=== PATIENT | female | born 1945 | race Caucasian/White ===

== ENCOUNTER 2018-05-30 12:00 | Observation (INO) ==
--- NOTE | 2018-05-30 12:38 | ED ---
HPI General Chief complaint: Nausea/Vomiting/Diarrhea Stated complaint: ABD PAIN Time Seen by Provider: 05/30/18 12:35 Source: patient and EMS Mode of arrival: EMS Limitations: physical limitation History of Present Illness HPI Narrative: 72-year-old female patient with previous history of hypertension , recently admitted for CHF 2 weeks ago, presents to the ER today for several days history of nausea, vomiting, diarrhea, and abdominal discomfort. She denies any recent fevers, states that she has had a little cough but otherwise denies any shortness of breath or other symptoms. Related Data Home Medications Medication Instructions Recorded Confirmed Lactobacillus acidoph-L.bulgar 1 packet PO TID 05/30/18 05/30/18 aspirin 81 mg PO DAILY 05/30/18 05/30/18 atorvastatin 40 mg PO DAILY 05/30/18 05/30/18 docusate sodium 100 mg PO BID 05/30/18 05/30/18 doxycycline monohydrate 100 mg PO Q12H 05/30/18 05/30/18 furosemide 20 mg PO BID 05/30/18 05/30/18 lisinopril 40 mg PO BID 05/30/18 05/30/18 lorazepam 0.5 mg PO DAILY PRN 05/30/18 05/30/18 methylprednisolone 4 mg PO DAILY 05/30/18 05/30/18 metoprolol succinate 50 mg PO DAILY 05/30/18 05/30/18 nitroglycerin 0.4 mg SUBLINGUAL Q5-15M PRN 05/30/18 05/30/18 ondansetron 4 mg PO BID PRN 05/30/18 05/30/18 oxycodone 5 mg PO Q6H PRN 05/30/18 05/30/18 pantoprazole 40 mg PO BID 05/30/18 05/30/18 potassium chloride 10 meq PO BID 05/30/18 05/30/18 sertraline 50 mg PO DAILY 05/30/18 05/30/18 Allergies Allergy/AdvReac Type Severity Reaction Status Date / Time Sulfa (Sulfonamide Allergy Intermediate ITCHING, Verified 05/30/18 12:18 Antibiotics) RASH Review of Systems Except as stated in HPI: all other systems reviewed are negative PMFSH History History Provided By: Patient Medical History Medical History H/O: hysterectomy (Acute) HTN (hypertension) (Acute) High cholesterol (Acute) Surgical History Surgical History History of cholecystectomy (Acute) Social History Social History Substance History: No History of Abuse Smoking Status: Never smoker How Often Do You Have a Drink Containing Alcohol: Never Recent Travel in [facility] within the Last 8 Weeks: No Recent Out of Country Travel within the Last 8 Weeks: No Exam Narrative Exam Narrative: GENERAL: Well-developed elderly white female patient currently in mild distress. Awake and oriented 3. SKIN: Focused skin assessment warm/dry. HEAD: Atraumatic. Normocephalic. EYES: Pupils equal and round. No scleral icterus. No injection or drainage. ENT: No nasal bleeding or discharge. Mucous membranes pink and moist. NECK: Trachea midline. No JVD. CARDIOVASCULAR: Regular rate and rhythm. No murmur appreciated. RESPIRATORY: No accessory muscle use. Decreased throughout bilaterally. Breath sounds equal bilaterally. GASTROINTESTINAL: Abdomen soft, non-tender, nondistended. Hepatic and splenic margins not palpable. MUSCULOSKELETAL: No obvious deformities. No clubbing. No cyanosis. No edema. NEUROLOGICAL: Awake and alert. No obvious cranial nerve deficits. Motor grossly within normal limits. Normal speech. PSYCHIATRIC: Appropriate mood and affect; insight and judgment normal. Course Hospital Course: Lab work shows significant leukocytosis. Her blood pressure is quite elevated in the ER, she is continuing to vomit in the ER and quite nauseous, she was given Zofran initially by EMS, given Reglan by me, and then Phenergan and is still having difficulty keeping medications down. Patient was ordered for clonidine in the ER but was too nauseous to take it. Her blood pressure continued to be quite elevated. She is symptomatic and apparently according to the daughter she has been having the cycle ongoing, is currently on doxycycline , has been labeled with sepsis, and they do not know the source at this point. At this point, my plan would be to admit her for further symptomatic relief as well as treatment of her blood pressure and nausea and vomiting. Case has been discussed with Dr. Gamez for admission. Initial Documented Vital Signs Temperature 98.3 F 07/27/18 12:18 Pulse Rate 68 05/30/18 12:18 Respiratory Rate 12 05/30/18 12:18 Blood Pressure 203/91 H 05/30/18 12:18 Pulse Oximetry 98 05/30/18 12:18 Last Documented Vital Signs Temperature 98.3 F 05/30/18 17:10 Pulse Rate 76 05/30/18 17:10 Respiratory Rate 19 05/30/18 17:10 Blood Pressure 207/88 H 05/30/18 17:10 Pulse Oximetry 97 05/30/18 17:10 Medical Decision Making Differential Diagnosis Differential Diagnosis: Gastroenteritis versus pancreatitis versus C. difficile diarrhea versus electrolyte abnormalities Lab Data Result diagrams: 05/30/18 12:35 05/30/18 12:35 Lab Results 05/30/18 05/30/18 05/30/18 Range/Units 12:35 12:35 12:35 WBC 17.7 H (4.0-11.0) th/mm3 RBC 4.96 (4.00-5.30) mil/mm3 Hgb 14.2 (11.6-15.3) gm/dL Hct 43.9 (35.0-46.0) % MCV 88.6 (80.0-100.0) fL MCH 28.7 (27.0-34.0) pg MCHC 32.4 (32.0-36.0) % RDW 14.9 (11.6-17.2) % Plt Count 387 (150-450) th/mm3 MPV 8.7 (7.0-11.0) fL Prelim Diff (Auto) Slide review pending Neut % (Auto) 81.0 H (16.0-70.0) % Lymph % (Auto) 9.8 (9.0-44.0) % [place] % (Auto) 7.3 (0.0-8.0) % Eos % (Auto) 1.2 (0.0-4.0) % Baso % (Auto) 0.7 (0.0-2.0) % Neut # (Auto) 14.3 H (1.8-7.7) th/mm3 Lymph # (Auto) 1.7 (1.0-4.8) th/mm3 [place] # (Auto) 1.3 H (0.0-0.9) th/mm3 Eos # (Auto) 0.2 (0.0-0.4) th/mm3 Baso # (Auto) 0.1 (0.0-0.2) th/mm3 WBC Differential . Diff Scan Auto diff confirmed Differential Comment . Platelet Estimate Normal (Normal) Platelet Morphology Normal (Normal) Ovalocytes 1+ H (None) Sodium 138 (136-145) meq/L Potassium 4.1 (3.5-5.1) meq/L Chloride 100 (98-107) meq/L Carbon Dioxide 30.2 (21.0-32.0) meq/L Anion Gap 8 (5-15) meq/L BUN 17 (7-18) mg/dL Creatinine 1.02 H (0.50-1.00) mg/dL Estimated GFR 54 L (>89) mL/min Random Glucose 98 (74-106) mg/dL Calcium 8.8 (8.5-10.1) mg/dL Total Bilirubin 1.0 (0.2-1.0) mg/dL AST 34 (15-37) U/L ALT 33 (10-53) U/L Alkaline Phosphatase 75 (45-117) U/L Troponin I 0.04 (0.02-0.05) ng/mL Total Protein 6.7 (6.4-8.2) g/dL Albumin 4.1 (3.4-5.0) g/dL Lipase 240 244 (73-393) U/L Urine Color (Yellw/Straw) Urine Clarity (Clear) Urine pH (5.0-8.5) Ur Specific [place] (1.002-1.035) Urine Protein (Neg-Trace) mg/dL Urine Glucose (UA) (Negative) mg/dL Urine Ketones (Negative) mg/dL Urine Occult Blood (Negative) Urine Nitrate (Negative) Urine Bilirubin (Negative) Urine Urobilinogen (Less than 2) mg/dL Ur Leukocyte Esterase (Negative) Urine RBC (0-3) /hpf Urine WBC (0-5) /hpf Micro UA Comment Urine Culture Comments 05/30/18 Range/Units Unknown WBC (4.0-11.0) th/mm3 RBC (4.00-5.30) mil/mm3 Hgb (11.6-15.3) gm/dL Hct (35.0-46.0) % MCV (80.0-100.0) fL MCH (27.0-34.0) pg MCHC (32.0-36.0) % RDW (11.6-17.2) % Plt Count (150-450) th/mm3 MPV (7.0-11.0) fL Prelim Diff (Auto) Neut % (Auto) (16.0-70.0) % Lymph % (Auto) (9.0-44.0) % [place] % (Auto) (0.0-8.0) % Eos % (Auto) (0.0-4.0) % Baso % (Auto) (0.0-2.0) % Neut # (Auto) (1.8-7.7) th/mm3 Lymph # (Auto) (1.0-4.8) th/mm3 [place] # (Auto) (0.0-0.9) th/mm3 Eos # (Auto) (0.0-0.4) th/mm3 Baso # (Auto) (0.0-0.2) th/mm3 WBC Differential Diff Scan Differential Comment Platelet Estimate (Normal) Platelet Morphology (Normal) Ovalocytes (None) Sodium (136-145) meq/L Potassium (3.5-5.1) meq/L Chloride (98-107) meq/L Carbon Dioxide (21.0-32.0) meq/L Anion Gap (5-15) meq/L BUN (7-18) mg/dL Creatinine (0.50-1.00) mg/dL Estimated GFR (>89) mL/min Random Glucose (74-106) mg/dL Calcium (8.5-10.1) mg/dL Total Bilirubin (0.2-1.0) mg/dL AST (15-37) U/L ALT (10-53) U/L Alkaline Phosphatase (45-117) U/L Troponin I (0.02-0.05) ng/mL Total Protein (6.4-8.2) g/dL Albumin (3.4-5.0) g/dL Lipase (73-393) U/L Urine Color Yellow (Yellw/Straw) Urine Clarity Clear (Clear) Urine pH 6.0 (5.0-8.5) Ur Specific [place] 1.043 H (1.002-1.035) Urine Protein Negative (Neg-Trace) mg/dL Urine Glucose (UA) Negative (Negative) mg/dL Urine Ketones Negative (Negative) mg/dL Urine Occult Blood Negative (Negative) Urine Nitrate Negative (Negative) Urine Bilirubin Negative (Negative) Urine Urobilinogen Less than 2 (Less than 2) mg/dL Ur Leukocyte Esterase Negative (Negative) Urine RBC 1 (0-3) /hpf Urine WBC 1 (0-5) /hpf Micro UA Comment Culture not ind Urine Culture Comments Culture not ind Imaging Data Radiologist's impression: Chest X-Ray 05/30/18 12:37 CONCLUSION: No acute cardiopulmonary disease. Abdomen/Pelvis CT 05/30/18 13:46 CONCLUSION: 1. Status post cholecystectomy. There is a small amount air in the central biliary system which can be a normal postsurgical change. 2. Unremarkable bowel gas pattern with no obstruction or inflammatory change. Discharge Plan Discharge Disposition Patient Disposition: 30 Still Patient Discharge Condition Condition: Stable Discharge Details Anticipated Discharge Date: 05/30/18 Diagnosis: Vomiting and diarrhea, Hypertension, Leukocytosis Physicians Team ED Provider: Julian Benjamin Primary Care Provider: Geovani Cazares Rxs /Orders / Referrals /Forms Prescriptions: No Action aspirin 81 mg Tablet,Delayed Release (Dr/Ec) 81 mg PO DAILY RF: 0 doxycycline monohydrate 100 mg Capsule 100 mg PO Q12H RF: 0 docusate sodium 100 mg Capsule 100 mg PO BID RF: 0 furosemide 20 mg Tablet 20 mg PO BID RF: 0 Lactobacillus acidoph-L.bulgar 100 million cell Granules In Packet 1 packet PO TID RF: 0 atorvastatin 40 mg Tablet 40 mg PO DAILY RF: 0 potassium chloride 10 mEq Capsule, Extended Release 10 meq PO BID RF: 0 metoprolol succinate 50 mg Tablet Extended Release 24 Hr 50 mg PO DAILY RF: 0 lorazepam 0.5 mg Tablet 0.5 mg PO DAILY PRN (Reason: Nausea) RF: 0 pantoprazole 40 mg Tablet,Delayed Release (Dr/Ec) 40 mg PO BID RF: 0 nitroglycerin 0.4 mg Tablet, Sublingual 0.4 mg SUBLINGUAL Q5-15M PRN (Reason: Chest Pain) RF: 0 methylprednisolone 4 mg Tablets,Dose Pack 4 mg PO DAILY RF: 0 lisinopril 40 mg Tablet 40 mg PO BID RF: 0 ondansetron 4 mg Tablet,Disintegrating 4 mg PO BID PRN (Reason: Nausea) RF: 0 sertraline 50 mg Tablet 50 mg PO DAILY RF: 0 oxycodone 5 mg Tablet 5 mg PO Q6H PRN (Reason: Pain) RF: 0 Discharge Interventions Interventions: Vital Signs Last Done: 05/30/18 17:10 Status ED Status: With Nurse
[2018-05-30 13:08] LABS: Baso # (Auto) 0.1 th/mm3 (0.0-0.2); Baso % (Auto) 0.7 % (0.0-2.0); Eos # (Auto) 0.2 th/mm3 (0.0-0.4); Eos % (Auto) 1.2 % (0.0-4.0); Hematocrit 43.9 % (35.0-46.0); Hemoglobin 14.2 gm/dL (11.6-15.3); Lymph # (Auto) 1.7 th/mm3 (1.0-4.8); Lymph % (Auto) 9.8 % (9.0-44.0); Mean Corpuscular HGB Conc 32.4 % (32.0-36.0); Mean Corpuscular Hemoglobin 28.7 pg (27.0-34.0); Mean Corpuscular Volume 88.6 fL (80.0-100.0); Mean Platelet Volume 8.7 fL (7.0-11.0); Mono # (Auto) 1.3 th/mm3 (0.0-0.9); Mono % (Auto) 7.3 % (0.0-8.0); Neut # (Auto) 14.3 th/mm3 (1.8-7.7); Platelet Count 387 th/mm3 (150-450); Red Blood Count 4.96 mil/mm3 (4.00-5.30); Red Cell Distribution Width 14.9 % (11.6-17.2); White Blood Count 17.7 th/mm3 (4.0-11.0)
--- NOTE | 2018-05-30 13:21 | XR ---
EXAM DATE: 05/30/2018 1:16 PM EDT AGE/SEX: 72 years / Female INDICATIONS: Shortness of breath, nausea, vomiting. CLINICAL DATA: This is the patient's initial encounter. Patient reports that signs and symptoms have been present for > 1 year and indicates a pain score of 1/10. MEDICAL/SURGICAL HISTORY: Hypertension. Congestive heart failure. Hysterectomy. COMPARISON: [facility], XR CHEST PA AND LAT, 11/14/2017. . FINDINGS: A single AP view of the chest demonstrates the lungs to be symmetrically aerated without evidence of mass, infiltrate or effusion. The cardiomediastinal contours are unremarkable. Osseous structures a re intact. CONCLUSION: No acute cardiopulmonary disease. Electronically signed by: Obed Prather MD 05/30/2018 1:20 PM EDT
[2018-05-30 13:38] LABS: Ovalocytes 1+; Platelet Estimate Normal (Normal); Platelet Morphology Normal (Normal)
[2018-05-30 13:40] LABS: Alanine Aminotransferase 33 U/L (10-53); Albumin 4.1 g/dL (3.4-5.0); Alkaline Phosphatase 75 U/L (45-117); Anion Gap 8 meq/L (5-15); Aspartate Aminotransferase 34 U/L (15-37); Blood Urea Nitrogen 17 mg/dL (7-18); Calcium 8.8 mg/dL (8.5-10.1); Carbon Dioxide 30.2 meq/L (21.0-32.0); Chloride 100 meq/L (98-107); Glomerular Filtration Rate 54 mL/min (>89); Glucose,Random 98 mg/dL (74-106); Lipase 240 U/L (73-393); Potassium 4.1 meq/L (3.5-5.1); Sodium 138 meq/L (136-145); Total Protein 6.7 g/dL (6.4-8.2)
--- NOTE | 2018-05-30 14:41 | CT ---
EXAM DATE: 05/30/2018 2:27 PM EDT AGE/SEX: 72 years / Female INDICATIONS: Upper abdominal pain. Nausea. Vomiting. CLINICAL DATA: This is the patient's initial encounter. Patient reports that signs and symptoms have been present for 1 day and indicates a pain score of 5/10. MEDICAL/SURGICAL HISTORY: Hypertension. Hysterectomy. Cholecystectomy. ORAL CONTRAST: No oral contrast ingested. RADIATION DOSE: 10.75 CTDI (mGy) COMPARISON: [facility], CT ABDOMEN AND PELVIS W AND W/O CONTRAST, 10/11/2017. . TECHNIQUE: Multiple contiguous axial images were obtained through the abdomen and pelvis following b olus infusion of 91 ml Omnipaque 350 (iohexol) nonionic water-soluble contrast as a single exam dos e. No oral contrast ingested. Using automated exposure control and adjustment of the mA and/or kV ac cording to patient size, radiation dose was kept as low as reasonably achievable to obtain optimal di agnostic quality images. DICOM format image data is available electronically for review and comparis on. FINDINGS: Lower Lungs: The visualized lower lungs are clear. Liver: The liver has a homogeneous density without space-occupying lesion. There is no dilation of th e biliary tree. As a small amount of air in the central biliary system. The patient is status post ch olecystectomy with surgical clips in the region of the joshua hepatis. Spleen: Homogeneous density without enlargement. Pancreas: Unremarkable without mass or calcification. Kidneys: Normal in size and shape. No evidence of mass or hydronephrosis. Adrenal Glands: Unremarkable. Aorta: The aorta and proximal iliac vessels are grossly unremarkable without aneurysmal dilation. Bowel/Mesentery: No oral contrast was given. The bowel loops are grossly unremarkable. The cecum and sigmoid colon have a normal configuration. Abdominal Wall: Intact. Retroperitoneum: No evidence of adenopathy in the retrocrural, para-aortic, or deep pelvic regions. Bladder: Contours are smooth. Reproductive Organs: No abnormal masses or calcifications seen. Inguinal: The inguinal region is unremarkable without evidence of adenopathy. Bony Structures: There is diffuse osteopenia and mild degenerative change. The patient is again note d to be status post bilateral hip arthroplasty. A pain pump is again noted with intrathecal catheter. CONCLUSION: 1. Status post cholecystectomy. There is a small amount air in the central biliary system which can be a normal postsurgical change. 2. Unremarkable bowel gas pattern with no obstruction or inflammatory change. Electronically signed by: Obed Prather MD 05/30/2018 2:39 PM EDT
[2018-05-30 16:01] LABS: Troponin I 0.04 ng/mL (0.02-0.05)
[2018-05-30] MEDS ORDERED: Acetaminophen 325 MG Tablet PO ONE (16:53)
[2018-05-30 17:10] LABS: Bilirubin,Urine Negative (Negative); Clarity,Urine Clear (Clear); Color,Urine Yellow (Yellw/Straw); Glucose,Urine (UA) Negative (Negative); Leukocyte Esterase,Urine Negative (Negative); Nitrite,Urine Negative (Negative); Specific Gravity,Urine 1.043 (1.002-1.035)
[2018-05-30] MEDS ORDERED: Bisacodyl 10 MG Supp RECTAL PRN (17:53)
[2018-05-30] MEDS: Furosemide 20 MG Tablet PO SCH (22:05)
[2018-05-30] MEDS: Docusate Sodium 100 MG Capsule PO SCH (22:05)
[2018-05-30] MEDS: Lisinopril 20 MG Tablet PO SCH (22:05)
--- NOTE | 2018-05-30 23:28 | P.HPIM ---
History of Present Illness Service: [facility] Primary Care Physician: Geovani Cazares Chief Complaint: Abdominal pain, nausea, and vomiting History of Present Illness: Ms. Valdivia is a 72-year-old female with a history hyperlipidemia, hypertension, and possibly congestive heart failure who was admitted on 05/30/2018 for poorly controlled hypertension and abdominal pain with intractable nausea, and vomiting. The patient is seen in the CDU. She states that she was treated at [facility] in [place] about a week ago for a "blood infection". At the time of my visit, she reports feeling much better and denies any abdominal pain , nausea, vomiting, or diarrhea. Review of Systems All other systems reviewed negative except as stated in HPI [facility] - History History Provided By: Patient - Medical History Medical History: Medical History (Last Reviewed 05/30/18 @ 12:44 by Julian Benjamin MD) H/O: hysterectomy HTN (hypertension) High cholesterol - Surgical History Surgical History: Surgical History (Last Reviewed 05/30/18 @ 12:44 by Julian Benjamin MD) History of cholecystectomy - Tobacco History Smoking Status: Never smoker - Alcohol History How Often Do You Have a Drink Containing Alcohol: Never - Substance Use History Substance History: No History of Abuse - Travel History Recent Travel in the [place] Within the Last 8 Weeks: No Recent Travel Out of the Country Within the Last 8 Weeks: No - Immunization History Tetanus Immunization: >5 Years Hx Influenza Vaccine This Season: No Medications and Allergies Active Medications: Active Medications Al Hydroxide/Mg Hydroxide (Milk Of Hannah Fontanaq) 30 ml PO Q12H PRN PRN Reason: Mild Constipation Aspirin (Ecotrin) 81 mg PO DAILY [facility] Atorvastatin Calcium (Lipitor) 40 mg PO DAILY [facility] Bisacodyl (Dulcolax Supp) 10 mg RECTAL DAILY PRN PRN Reason: SEVERE CONSITIPATION Clonidine HCl (Catapres) 0.1 mg PO Q6H PRN PRN Reason: SBP>180, DBP>110 Docusate Sodium (Colace) 100 mg PO BID [facility] Last Admin: 05/30/18 22:05 Dose: 100 mg Enalaprilat (Vasotec Inj) 1.25 mg IV.PUSH Q6H PRN PRN Reason: SBP>180, DBP>110 Furosemide (Lasix) 20 mg PO BID [facility] Last Admin: 05/30/18 22:05 Dose: 20 mg Lactulose (Lactulose Liq) 30 ml PO DAILY PRN PRN Reason: SEVERE CONSITIPATION Lisinopril (Prinivil) 40 mg PO BID [facility] Last Admin: 05/30/18 22:05 Dose: 40 mg Metoprolol Succinate (Toprol Xl) 50 mg PO DAILY [facility] Sennosides (Senokot) 17.2 mg PO Q12H PRN PRN Reason: Moderate Constipation Sertraline HCl (Zoloft) 50 mg PO DAILY [facility] Sodium Chloride (Ns Flush) 2 ml IV.FLUSH PRN PRN PRN Reason: FLUSH AFTER USING IV ACCESS Allergies Allergy/AdvReac Type Severity Reaction Status Date / Time Sulfa (Sulfonamide Allergy Intermediate ITCHING, Verified 05/30/18 12:18 Antibiotics) RASH Home Medications Medication Instructions Recorded Confirmed Type Lactobacillus acidoph-L.bulgar 1 packet PO TID 05/30/18 05/30/18 History aspirin 81 mg PO DAILY 05/30/18 05/30/18 History atorvastatin 40 mg PO DAILY 05/30/18 05/30/18 History docusate sodium 100 mg PO BID 05/30/18 05/30/18 History doxycycline monohydrate 100 mg PO Q12H 05/30/18 05/30/18 History furosemide 20 mg PO BID 05/30/18 05/30/18 History lisinopril 40 mg PO BID 05/30/18 05/30/18 History lorazepam 0.5 mg PO DAILY PRN 05/30/18 05/30/18 History methylprednisolone 4 mg PO DAILY 05/30/18 05/30/18 History metoprolol succinate 50 mg PO DAILY 05/30/18 05/30/18 History nitroglycerin 0.4 mg SUBLINGUAL Q5-15M PRN 05/30/18 05/30/18 History ondansetron 4 mg PO BID PRN 05/30/18 05/30/18 History oxycodone 5 mg PO Q6H PRN 05/30/18 05/30/18 History pantoprazole 40 mg PO BID 05/30/18 05/30/18 History potassium chloride 10 meq PO BID 05/30/18 05/30/18 History sertraline 50 mg PO DAILY 05/30/18 05/30/18 History Exam Vital signs: Vital Signs 05/30/18 12:18 05/30/18 12:49 05/30/18 15:46 Temperature 98.3 F Pulse Rate 68 78 Respiratory Rate 12 19 Blood Pressure 203/91 H 184/83 H Pulse Oximetry 98 97 99 05/30/18 17:10 05/30/18 18:04 05/30/18 18:09 Temperature 98.3 F Pulse Rate 76 85 Respiratory Rate 19 19 16 Blood Pressure 207/88 H 141/69 H Pulse Oximetry 97 95 05/30/18 20:00 Temperature 99.0 F Pulse Rate 87 Respiratory Rate 18 Blood Pressure 97/59 L Pulse Oximetry 94 L Intake & Output 05/30/18 05/30/18 05/31/18 06:59 18:59 06:59 Weight 78.018 kg - Constitutional no acute distress, average body habitus - Routine Respiratory Exam Present: CTA bilaterally. Absent: accessory muscle use, wheezes, crackles - Routine Cardiovascular Exam Present: RRR, S1, S2. Absent: murmur, gallop, rubs - Routine Abdominal Exam Present: soft, normoactive bowel sounds. Absent: tenderness, distended - Routine Extremities Exam Present: pulses intact. 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) Results - Labs CBC & Chem 7: 05/30/18 12:35 05/30/18 12:35 Labs: Short CBC 05/30/18 Range/Units 12:35 WBC 17.7 H (4.0-11.0) th/mm3 Hgb 14.2 (11.6-15.3) gm/dL Hct 43.9 (35.0-46.0) % Plt Count 387 (150-450) th/mm3 BMP 05/30/18 12:35 Sodium 138 Potassium 4.1 Chloride 100 Carbon Dioxide 30.2 BUN 17 Creatinine 1.02 H Calcium 8.8 Cardiac Enzymes 05/30/18 Range/Units 12:35 Troponin I 0.04 (0.02-0.05) ng/mL Liver Function 05/30/18 Range/Units 12:35 Total Bilirubin 1.0 (0.2-1.0) mg/dL AST 34 (15-37) U/L ALT 33 (10-53) U/L Alkaline Phosphatase 75 (45-117) U/L Albumin 4.1 (3.4-5.0) g/dL Urine 05/30/18 Range/Units Unknown Urine Color Yellow (Yellw/Straw) Urine Clarity Clear (Clear) Urine pH 6.0 (5.0-8.5) Ur Specific [place] 1.043 H (1.002-1.035) Urine Protein Negative (Neg-Trace) mg/dL Urine Glucose (UA) Negative (Negative) mg/dL - Imaging Impressions Chest X-Ray 05/30/18 12:37 CONCLUSION: No acute cardiopulmonary disease. Abdomen/Pelvis CT 05/30/18 13:46 CONCLUSION: 1. Status post cholecystectomy. There is a small amount air in the central biliary system which can be a normal postsurgical change. 2. Unremarkable bowel gas pattern with no obstruction or inflammatory change. Caprini VTE Risk Assessment Caprini VTE Risk Assessment: Moderate/High Risk (score >= 2) Caprini Risk Assessment Model: Point Value = 1 Point Value = 2 Point Value = 3 Point Value = 5 Age 41-60 Minor surgery BMI > 25 kg/m2 Swollen legs Varicose veins or History of unexplained or recurrent spontaneous Oral contraceptives or hormone replacement Sepsis (< 1 month) Serious lung disease, including pneumonia (< 1 month) Abnormal pulmonary function Acute myocardial infarction Congestive heart failure (< 1 month) History of inflammatory bowel disease Medical patient at bed rest Age 61-74 Arthroscopic surgery Major open surgery (> 45 min) Laparoscopic surgery (> 45 min) Malignancy Confined to bed (> 72 hours) Immobilizing plaster cast Central venous access Age >= 75 History of VTE Family history of VTE Factor V Leiden Prothrombin [id number] Lupus anticoagulant Anticardiolipin antibodies Elevated serum homocysteine Heparin-induced thrombocytopenia Other congenital or acquired thrombophilia Stroke (< 1 month) Elective arthroplasty Hip, pelvis, or leg fracture Acute spinal cord injury (< 1 month) Prophylaxis Regimen: Total Risk Factor Score Risk Level Prophylaxis Regimen 0-1 Low Early ambulation 2 Moderate Order ONE of the following: *Sequential Compression Device (SCD) *Heparin 5000 units SQ BID 3-4 Higher Order ONE of the following medications: *Heparin 5000 units SQ TID *Enoxaparin/Lovenox 40 mg SQ daily (WT < 150 kg, CrCl > 30 mL/min) *Enoxaparin/Lovenox 30 mg SQ daily (WT < 150 kg, CrCl > 10-29 mL/min) *Enoxaparin/Lovenox 30 mg SQ BID (WT < 150 kg, CrCl > 30 mL/min) AND/OR *Sequential Compression Device (SCD) 5 or more Highest Order ONE of the following medications: *Heparin 5000 units SQ TID (Preferred with Epidurals) *Enoxaparin/Lovenox 40 mg SQ daily (WT < 150 kg, CrCl > 30 mL/min) *Enoxaparin/Lovenox 30 mg SQ daily (WT < 150 kg, CrCl > 10-29 mL/min) *Enoxaparin/Lovenox 30 mg SQ BID (WT < 150 kg, CrCl > 30 mL/min) AND *Sequential Compression Device (SCD) Assessment and Plan - Plan Ms. Valdivia is a 72-year-old female with a history hyperlipidemia, hypertension, and possibly congestive heart failure who was admitted on 05/30/2018 for poorly controlled hypertension and abdominal pain with intractable nausea, and vomiting. Abdominal pain with intractable nausea and vomiting - Patient has leukocytosis with a WBC of 17.7, afebrile, and not tachycardic - does not meet sepsis criteria at this time - Check for C. 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 Jhaveri, RN, and patient
[2018-05-31 07:28] LABS: Baso # (Auto) 0.1 th/mm3 (0.0-0.2); Baso % (Auto) 0.5 % (0.0-2.0); Eos # (Auto) 0.1 th/mm3 (0.0-0.4); Eos % (Auto) 0.4 % (0.0-4.0); Hematocrit 44.4 % (35.0-46.0); Hemoglobin 15.1 gm/dL (11.6-15.3); Lymph # (Auto) 1.8 th/mm3 (1.0-4.8); Lymph % (Auto) 12.8 % (9.0-44.0); Mean Corpuscular HGB Conc 33.9 % (32.0-36.0); Mean Corpuscular Hemoglobin 30.1 pg (27.0-34.0); Mean Corpuscular Volume 88.7 fL (80.0-100.0); Mean Platelet Volume 8.8 fL (7.0-11.0); Mono % (Auto) 7.3 % (0.0-8.0); Neut # (Auto) 10.8 th/mm3 (1.8-7.7); Platelet Count 350 th/mm3 (150-450); Red Blood Count 5.01 mil/mm3 (4.00-5.30); Red Cell Distribution Width 15.4 % (11.6-17.2); White Blood Count 13.7 th/mm3 (4.0-11.0)
[2018-05-31 07:53] LABS: Anion Gap 12 meq/L (5-15); Aspartate Aminotransferase 21 U/L (15-37); Blood Urea Nitrogen 13 mg/dL (7-18); Calcium 9.2 mg/dL (8.5-10.1); Carbon Dioxide 29.2 meq/L (21.0-32.0); Chloride 99 meq/L (98-107); Glomerular Filtration Rate 68 mL/min (>89); Glucose,Random 104 mg/dL (74-106); Potassium 3.2 meq/L (3.5-5.1); Sodium 140 meq/L (136-145)
[2018-05-31 07:57] LABS: Alkaline Phosphatase 86 U/L (45-117); Total Protein 6.9 g/dL (6.4-8.2)
[2018-05-31 07:58] LABS: Alanine Aminotransferase 29 U/L (10-53)
[2018-05-31] MEDS: Sertraline 50 MG Tablet PO SCH (09:22)
[2018-05-31] MEDS: Furosemide 20 MG Tablet PO SCH ×2 (09:23→21:17)
[2018-05-31] MEDS: Lisinopril 20 MG Tablet PO SCH ×2 (09:23→21:19)
[2018-05-31] MEDS: Docusate Sodium 100 MG Capsule PO SCH ×2 (09:24→21:18)
--- NOTE | 2018-05-31 13:39 | P.CONGI ---
History of Present Illness Consult date: 05/31/18 Consult reason: intractable nausea, and vomiting for the past 2 days. Chief complaint: reccurent vomiting/leukocytosis History of Present Illness: This is 72-year-old female with a history hyperlipidemia, hypertension, who presented with intractable nausea, and vomiting for the past 2 days. She states that she was treated at [facility] in [place] about a week ago for a "blood infection". Medical records have been requested. Pt seems to be doing better today, still nauseous but no vomiting, no abd pain, no diarrhea, no melena or hematochezia. She is s/p cholecystectomy 2 yrs ago. States she had EGD/colonoscopy about a yr ago in [facility]. Abdomen/Pelvis CT 05/30/18 13:46 1. Status post cholecystectomy. There is a small amount air in the central biliary system which can be a normal postsurgical change. 2. Unremarkable bowel gas pattern with no obstruction or inflammatory change. Labs showed leucocytosis, LFTs, and lipase wnl Review of Systems All other systems reviewed negative except as stated in HPI PMFSH - History History Provided By: Patient - Medical History Medical History: Medical History (Last Reviewed 05/30/18 @ 12:44 by Julian Benjamin MD) H/O: hysterectomy HTN (hypertension) High cholesterol - Surgical History Surgical History: Surgical History (Last Reviewed 05/30/18 @ 12:44 by Julian Benjamin MD) History of cholecystectomy - Tobacco History Smoking Status: Never smoker - Alcohol History How Often Do You Have a Drink Containing Alcohol: Never - Substance Use History Substance History: No History of Abuse - Travel History Recent Travel in the [place] Within the Last 8 Weeks: No Recent Travel Out of the Country Within the Last 8 Weeks: No - Immunization History Tetanus Immunization: >5 Years Hx Influenza Vaccine This Season: No Medications and Allergies Active Medications: Active Medications Al Hydroxide/Mg Hydroxide (Milk Of Magnsusan Liq) 30 ml PO Q12H PRN PRN Reason: Mild Constipation Aspirin (Ecotrin) 81 mg PO DAILY [facility] Last Admin: 05/31/18 09:23 Dose: 81 mg Atorvastatin Calcium (Lipitor) 40 mg PO DAILY [facility] Last Admin: 05/31/18 09:23 Dose: 40 mg Bisacodyl (Dulcolax Supp) 10 mg RECTAL DAILY PRN PRN Reason: SEVERE CONSITIPATION Clonidine HCl (Catapres) 0.1 mg PO Q6H PRN PRN Reason: SBP>180, DBP>110 Last Admin: 05/31/18 01:35 Dose: 0.1 mg Clotrimazole (Mycelex Nicole) 10 mg BUCCAL 5 TIMES A DAY [facility] Stop: 06/10/18 13:59 Docusate Sodium (Colace) 100 mg PO BID [facility] Last Admin: 05/31/18 09:24 Dose: Not Given Enalaprilat (Vasotec Inj) 1.25 mg IV.PUSH Q6H PRN PRN Reason: SBP>180, DBP>110 Furosemide (Lasix) 20 mg PO BID [facility] Last Admin: 05/31/18 09:23 Dose: 20 mg Lactulose (Lactulose Liq) 30 ml PO DAILY PRN PRN Reason: SEVERE CONSITIPATION Lisinopril (Prinivil) 40 mg PO BID [facility] Last Admin: 05/31/18 09:23 Dose: 40 mg Lorazepam (Ativan Inj) 0.5 mg IV.PUSH Q6H PRN PRN Reason: Nausea and Anxiety Metoclopramide HCl (Reglan Inj) 5 mg IV.PUSH Q8H [facility]; Protocol Stop: 06/03/18 10:59 Last Admin: 05/31/18 12:40 Dose: 5 mg Metoprolol Succinate (Toprol Xl) 50 mg PO DAILY [facility] Last Admin: 05/31/18 09:22 Dose: 50 mg Prochlorperazine Edisylate (Compazine Inj) 5 mg IV.PUSH Q4H PRN PRN Reason: NAUSEA OR VOMITING Last Admin: 05/31/18 01:34 Dose: 5 mg Sennosides (Senokot) 17.2 mg PO Q12H PRN PRN Reason: Moderate Constipation Sertraline HCl (Zoloft) 50 mg PO DAILY [facility] Last Admin: 05/31/18 09:22 Dose: 50 mg Sodium Chloride (Ns Flush) 2 ml IV.FLUSH PRN PRN PRN Reason: FLUSH AFTER USING IV ACCESS Last Admin: 05/31/18 09:24 Dose: 2 ml Allergies Allergy/AdvReac Type Severity Reaction Status Date / Time Sulfa (Sulfonamide Allergy Intermediate ITCHING, Verified 05/30/18 12:18 Antibiotics) RASH Home Medications Medication Instructions Recorded Confirmed Type Lactobacillus acidoph-L.bulgar 1 packet PO TID 05/30/18 05/30/18 History aspirin 81 mg PO DAILY 05/30/18 05/30/18 History atorvastatin 40 mg PO DAILY 05/30/18 05/30/18 History docusate sodium 100 mg PO BID 05/30/18 05/30/18 History doxycycline monohydrate 100 mg PO Q12H 05/30/18 05/30/18 History furosemide 20 mg PO BID 05/30/18 05/30/18 History lisinopril 40 mg PO BID 05/30/18 05/30/18 History lorazepam 0.5 mg PO DAILY PRN 05/30/18 05/30/18 History methylprednisolone 4 mg PO DAILY 05/30/18 05/30/18 History metoprolol succinate 50 mg PO DAILY 05/30/18 05/30/18 History nitroglycerin 0.4 mg SUBLINGUAL Q5-15M PRN 05/30/18 05/30/18 History ondansetron 4 mg PO BID PRN 05/30/18 05/30/18 History oxycodone 5 mg PO Q6H PRN 05/30/18 05/30/18 History pantoprazole 40 mg PO BID 05/30/18 05/30/18 History potassium chloride 10 meq PO BID 05/30/18 05/30/18 History sertraline 50 mg PO DAILY 05/30/18 05/30/18 History Exam Vital signs: Vital Signs 05/30/18 15:46 05/30/18 17:10 05/30/18 18:04 Temperature 98.3 F Pulse Rate 78 76 85 Respiratory Rate 19 19 19 Blood Pressure 184/83 H 207/88 H 141/69 H Pulse Oximetry 99 97 95 05/30/18 18:09 05/30/18 20:00 05/31/18 00:00 Temperature 99.0 F 98.9 F Pulse Rate 87 83 Respiratory Rate 16 14 16 Blood Pressure 97/59 L 118/60 Pulse Oximetry 94 L 94 L 05/31/18 03:40 05/31/18 08:00 05/31/18 12:00 Temperature 99.8 F H 98.8 F 99.4 F Pulse Rate 86 90 92 H Respiratory Rate 16 18 16 Blood Pressure 140/72 178/82 H 90/54 L Pulse Oximetry 94 L 94 L 96 Intake & Output 05/30/18 05/31/18 05/31/18 18:59 06:59 18:59 Weight 78.018 kg - Constitutional no acute distress - Routine HEENT Exam Head: Present: normocephalic Eye: Present: PERRL - Routine Neck Exam Present: supple - Routine Respiratory Exam Present: CTA bilaterally - Routine Cardiovascular Exam Present: RRR - Routine Abdominal Exam Present: soft, normoactive bowel sounds. Absent: tenderness, distended - Routine Skin Exam Present: intact, dry. Absent: jaundice - Routine Neurological Exam Present: alert, oriented X3 Results - Labs CBC & Chem 7: 05/31/18 06:30 05/31/18 06:30 Labs: Laboratory Results - last 24 hr 05/30/18 05/30/18 05/30/18 12:35 12:35 12:35 WBC RBC Hgb Hct MCV MCH MCHC RDW Plt Count MPV Neut % (Auto) Lymph % (Auto) [place] % (Auto) Eos % (Auto) Baso % (Auto) Neut # (Auto) Lymph # (Auto) [place] # (Auto) Eos # (Auto) Baso # (Auto) WBC Differential . Diff Scan Auto diff confirmed Differential Comment Platelet Estimate Normal Platelet Morphology Normal Ovalocytes 1+ H Sodium 138 Potassium 4.1 Chloride 100 Carbon Dioxide 30.2 Anion Gap 8 BUN 17 Creatinine 1.02 H Estimated GFR 54 L Random Glucose 98 Calcium 8.8 Magnesium Total Bilirubin 1.0 AST 34 ALT 33 Alkaline Phosphatase 75 Troponin I 0.04 Total Protein 6.7 Albumin 4.1 Lipase 240 244 Urine Color Urine Clarity Urine pH Ur Specific [place] Urine Protein Urine Glucose (UA) Urine Ketones Urine Occult Blood Urine Nitrate Urine Bilirubin Urine Urobilinogen Ur Leukocyte Esterase Urine RBC Urine WBC Micro UA Comment Urine Culture Comments 05/30/18 05/31/18 05/31/18 Unknown 06:30 06:30 WBC 13.7 H RBC 5.01 Hgb 15.1 Hct 44.4 MCV 88.7 MCH 30.1 MCHC 33.9 RDW 15.4 Plt Count 350 MPV 8.8 Neut % (Auto) 79.0 H Lymph % (Auto) 12.8 [place] % (Auto) 7.3 Eos % (Auto) 0.4 Baso % (Auto) 0.5 Neut # (Auto) 10.8 H Lymph # (Auto) 1.8 [place] # (Auto) 1.0 H Eos # (Auto) 0.1 Baso # (Auto) 0.1 WBC Differential . Diff Scan Differential Comment Auto diff final Platelet Estimate Platelet Morphology Ovalocytes Sodium 140 Potassium 3.2 L D Chloride 99 Carbon Dioxide 29.2 Anion Gap 12 BUN 13 Creatinine 0.83 Estimated GFR 68 L Random Glucose 104 Calcium 9.2 Magnesium Total Bilirubin 1.1 H AST 21 ALT 29 Alkaline Phosphatase 86 Troponin I Total Protein 6.9 Albumin 4.0 Lipase Urine Color Yellow Urine Clarity Clear Urine pH 6.0 Ur Specific [place] 1.043 H Urine Protein Negative Urine Glucose (UA) Negative Urine Ketones Negative Urine Occult Blood Negative Urine Nitrate Negative Urine Bilirubin Negative Urine Urobilinogen Less than 2 Ur Leukocyte Esterase Negative Urine RBC 1 Urine WBC 1 Micro UA Comment Culture not ind Urine Culture Comments Culture not ind 05/31/18 06:30 WBC RBC Hgb Hct MCV MCH MCHC RDW Plt Count MPV Neut % (Auto) Lymph % (Auto) [place] % (Auto) Eos % (Auto) Baso % (Auto) Neut # (Auto) Lymph # (Auto) [place] # (Auto) Eos # (Auto) Baso # (Auto) WBC Differential Diff Scan Differential Comment Platelet Estimate Platelet Morphology Ovalocytes Sodium Potassium Chloride Carbon Dioxide Anion Gap BUN Creatinine Estimated GFR Random Glucose Calcium Magnesium 1.9 Total Bilirubin AST ALT Alkaline Phosphatase Troponin I Total Protein Albumin Lipase Urine Color Urine Clarity Urine pH Ur Specific [place] Urine Protein Urine Glucose (UA) Urine Ketones Urine Occult Blood Urine Nitrate Urine Bilirubin Urine Urobilinogen Ur Leukocyte Esterase Urine RBC Urine WBC Micro UA Comment Urine Culture Comments - Imaging Impressions Chest X-Ray 05/30/18 12:37 CONCLUSION: No acute cardiopulmonary disease. Abdomen/Pelvis CT 05/30/18 13:46 CONCLUSION: 1. Status post cholecystectomy. There is a small amount air in the central biliary system which can be a normal postsurgical change. 2. Unremarkable bowel gas pattern with no obstruction or inflammatory change. Assessment and Plan - Plan - Intractable nausea, and vomiting for the past 2 days- She states that she was treated at [facility] in [place] about a week ago for a "blood infection". Medical records have been requested. Pt seems to be doing better today, still nauseous but no vomiting, no abd pain, no diarrhea, no melena or hematochezia. She is s/p cholecystectomy 2 yrs ago. States she had EGD/ colonoscopy about a yr ago in [facility]. Abdomen/Pelvis CT 05/30/18 13:46 1. Status post cholecystectomy. There is a small amount air in the central biliary system which can be a normal postsurgical change. 2. Unremarkable bowel gas pattern with no obstruction or inflammatory change. Labs showed leucocytosis, LFTs, and lipase wn - Leucocytosis Recent infection, blood cx pending - hypokalemia Per attending - History hyperlipidemia, hypertension per attending Plan: - RIANA - EGD on Saturday if still here, other villavicencio can be done as an OP - ID consulted - Await stool studies - Supportive care - Pt seen and examined by Dr. Hinojosa and myself and this note is written on his behalf.
--- NOTE | 2018-05-31 13:58 | P.CONID ---
History of Present Illness Service: Infectious disease Consult date: 05/31/18 Requesting Physician: Naren Benoit Reason for Consult: Evaluate patient with leukocytosis Primary Care Provider: Geovani Cazares Chief Complaint: Abdominal pain, nausea, and vomiting History of Present Illness: Patient seen and examined. Records reviewed. Patient is a 72-year-old female, brought into the hospital for evaluation for possible congestive heart failure. Patient has had problem with abdominal pain nausea and vomiting at least 2 years now. She underwent cholecystectomy for that purpose, but the patient's symptoms did not improve. She has had according to the daughter extensive workup for nausea and vomiting, and nothing really has come up as far as diagnosis, and there was some thinking that she possibly could have gastroparesis. She was recently hospitalized at [facility] with same symptoms, and was diagnosed to have possible sepsis. According to the daughter there was no cultures that came back positive , but the patient was sent home on oral doxycycline which she was still taking up until the day of admission here. Patient still complains of abdominal pain. She has had very poor oral intake. There is been no fever or chills. Her initial white count was 17,000, and is down to 13,000. CT of the abdomen and pelvis only showed some air in the biliary tree. She denies any congestion or coughing. She is voiding without any complaints. Infectious disease consultation has been requested to evaluate the patient with leukocytosis. Review of Systems Constitutional: Denies chills, Denies fever(s), Denies night sweats Eyes: Denies discharge, Denies dry eyes Ears, Nose, Mouth, and Throat: Denies difficulty swallowing, Denies ear discharge, Denies ear pain, Denies nasal discharge, Denies pain with swallowing , Denies sore throat Cardiovascular: Reports shortness of breath, Denies chest pain Respiratory: Denies chest congestion, Denies cough Gastrointestinal: Reports abdominal pain, Reports nausea, Reports vomiting, Denies pain with swallowing Genitourinary: Denies difficulty urinating, Denies painful urination Musculoskeletal: Denies joint pain, Denies joint swelling Skin/Breast: Denies rash PMFSH - History History Provided By: Patient - Medical History Medical History: Medical History (Last Reviewed 05/31/18 @ 13:54 by Mary Walls MD) H/O: hysterectomy HTN (hypertension) High cholesterol - Surgical History Surgical History: Surgical History (Last Reviewed 05/31/18 @ 13:54 by Mary Walls MD) History of cholecystectomy - Tobacco History Smoking Status: Never smoker - Alcohol History How Often Do You Have a Drink Containing Alcohol: Never - Substance Use History Substance History: No History of Abuse - Travel History Recent Travel in the [place] Within the Last 8 Weeks: No Recent Travel Out of the Country Within the Last 8 Weeks: No - Immunization History Tetanus Immunization: >5 Years Hx Influenza Vaccine This Season: No Medications and Allergies Active Medications: Active Medications Al Hydroxide/Mg Hydroxide (Milk Of Magnesia Liq) 30 ml PO Q12H PRN PRN Reason: Mild Constipation Aspirin (Ecotrin) 81 mg PO DAILY [facility] Last Admin: 05/31/18 09:23 Dose: 81 mg Atorvastatin Calcium (Lipitor) 40 mg PO DAILY [facility] Last Admin: 05/31/18 09:23 Dose: 40 mg Bisacodyl (Dulcolax Supp) 10 mg RECTAL DAILY PRN PRN Reason: SEVERE CONSITIPATION Clonidine HCl (Catapres) 0.1 mg PO Q6H PRN PRN Reason: SBP>180, DBP>110 Last Admin: 05/31/18 01:35 Dose: 0.1 mg Clotrimazole (Mycelex Nicole) 10 mg BUCCAL 5 TIMES A DAY [facility] Stop: 06/10/18 13:59 Docusate Sodium (Colace) 100 mg PO BID [facility] Last Admin: 05/31/18 09:24 Dose: Not Given Enalaprilat (Vasotec Inj) 1.25 mg IV.PUSH Q6H PRN PRN Reason: SBP>180, DBP>110 Furosemide (Lasix) 20 mg PO BID [facility] Last Admin: 05/31/18 09:23 Dose: 20 mg Lactulose (Lactulose Liq) 30 ml PO DAILY PRN PRN Reason: SEVERE CONSITIPATION Lisinopril (Prinivil) 40 mg PO BID [facility] Last Admin: 05/31/18 09:23 Dose: 40 mg Lorazepam (Ativan Inj) 0.5 mg IV.PUSH Q6H PRN PRN Reason: Nausea and Anxiety Metoclopramide HCl (Reglan Inj) 5 mg IV.PUSH Q8H [facility]; Protocol Stop: 06/03/18 10:59 Last Admin: 05/31/18 12:40 Dose: 5 mg Metoprolol Succinate (Toprol Xl) 50 mg PO DAILY [facility] Last Admin: 05/31/18 09:22 Dose: 50 mg Prochlorperazine Edisylate (Compazine Inj) 5 mg IV.PUSH Q4H PRN PRN Reason: NAUSEA OR VOMITING Last Admin: 05/31/18 01:34 Dose: 5 mg Sennosides (Senokot) 17.2 mg PO Q12H PRN PRN Reason: Moderate Constipation Sertraline HCl (Zoloft) 50 mg PO DAILY [facility] Last Admin: 05/31/18 09:22 Dose: 50 mg Sodium Chloride (Ns Flush) 2 ml IV.FLUSH PRN PRN PRN Reason: FLUSH AFTER USING IV ACCESS Last Admin: 05/31/18 09:24 Dose: 2 ml Allergies Allergy/AdvReac Type Severity Reaction Status Date / Time Sulfa (Sulfonamide Allergy Intermediate ITCHING, Verified 05/30/18 12:18 Antibiotics) RASH Home Medications Medication Instructions Recorded Confirmed Type Lactobacillus acidoph-L.bulgar 1 packet PO TID 05/30/18 05/30/18 History aspirin 81 mg PO DAILY 05/30/18 05/30/18 History atorvastatin 40 mg PO DAILY 05/30/18 05/30/18 History docusate sodium 100 mg PO BID 05/30/18 05/30/18 History doxycycline monohydrate 100 mg PO Q12H 05/30/18 05/30/18 History furosemide 20 mg PO BID 05/30/18 05/30/18 History lisinopril 40 mg PO BID 05/30/18 05/30/18 History lorazepam 0.5 mg PO DAILY PRN 05/30/18 05/30/18 History methylprednisolone 4 mg PO DAILY 05/30/18 05/30/18 History metoprolol succinate 50 mg PO DAILY 05/30/18 05/30/18 History nitroglycerin 0.4 mg SUBLINGUAL Q5-15M PRN 05/30/18 05/30/18 History ondansetron 4 mg PO BID PRN 05/30/18 05/30/18 History oxycodone 5 mg PO Q6H PRN 05/30/18 05/30/18 History pantoprazole 40 mg PO BID 05/30/18 05/30/18 History potassium chloride 10 meq PO BID 05/30/18 05/30/18 History sertraline 50 mg PO DAILY 05/30/18 05/30/18 History Exam Vital signs: Vital Signs 05/30/18 15:46 05/30/18 17:10 05/30/18 18:04 Temperature 98.3 F Pulse Rate 78 76 85 Respiratory Rate 19 19 19 Blood Pressure 184/83 H 207/88 H 141/69 H Pulse Oximetry 99 97 95 05/30/18 18:09 05/30/18 20:00 05/31/18 00:00 Temperature 99.0 F 98.9 F Pulse Rate 87 83 Respiratory Rate 16 14 16 Blood Pressure 97/59 L 118/60 Pulse Oximetry 94 L 94 L 05/31/18 03:40 05/31/18 08:00 05/31/18 12:00 Temperature 99.8 F H 98.8 F 99.4 F Pulse Rate 86 90 92 H Respiratory Rate 16 18 16 Blood Pressure 140/72 178/82 H 90/54 L Pulse Oximetry 94 L 94 L 96 Intake & Output 05/30/18 05/31/18 05/31/18 18:59 06:59 18:59 Weight 78.018 kg Narrative: Physical Examination GENERAL: Patient is a well-nourished, well-developed female, awake and alert , not in respiratory distress. SKIN: Cool and dry. No generalized rash, no ecchymoses and no evidence of embolic lesions. HEAD: Atraumatic. Normocephalic. No temporal wasting, or tenderness. EYES: Stewart conjunctiva. No petechia or hemorrhage. Pupils equal, round and reactive to light. Extraocular movements full and intact. No scleral icterus. No injection or drainage. EARS, NOSE AND THROAT: Nose without bleeding or purulent nasal discharge. No sinus tenderness. Mucous membranes pink and moist. No oral lesions noted. NECK: Trachea midline. Supple and not tender, no meningeal signs CARDIOVASCULAR: Regular rate and rhythm. No murmurs, rubs or gallops heard RESPIRATORY: Clear to auscultation. Breath sounds equal bilaterally. No rales , wheezing or rhonchi ABDOMEN: Soft, nondistended. Bowel sounds present and normoactive. Has tenderness in epigastric region, but no rebound. No organomegaly. EXTREMITIES: No clubbing, cyanosis, or edema. No joint effusion, has good ROM. No calf tenderness. Well perfused and warm. NEUROLOGICAL: Awake and alert. Cranial nerves grossly intact. Motor grossly within normal limits. PSYCHIATRIC: Normal affect, calm and cooperative. LINE: No evidence of infection Results - Labs CBC & Chem 7: 05/31/18 06:30 05/31/18 06:30 Labs: Laboratory Results - last 24 hr 05/30/18 05/30/18 05/31/18 12:35 Unknown 06:30 WBC 13.7 H RBC 5.01 Hgb 15.1 Hct 44.4 MCV 88.7 MCH 30.1 MCHC 33.9 RDW 15.4 Plt Count 350 MPV 8.8 Neut % (Auto) 79.0 H Lymph % (Auto) 12.8 [place] % (Auto) 7.3 Eos % (Auto) 0.4 Baso % (Auto) 0.5 Neut # (Auto) 10.8 H Lymph # (Auto) 1.8 [place] # (Auto) 1.0 H Eos # (Auto) 0.1 Baso # (Auto) 0.1 WBC Differential . Differential Comment Auto diff final Sodium Potassium Chloride Carbon Dioxide Anion Gap BUN Creatinine Estimated GFR Random Glucose Calcium Magnesium Total Bilirubin AST ALT Alkaline Phosphatase Troponin I 0.04 Total Protein Albumin Lipase 244 Urine Color Yellow Urine Clarity Clear Urine pH 6.0 Ur Specific [place] 1.043 H Urine Protein Negative Urine Glucose (UA) Negative Urine Ketones Negative Urine Occult Blood Negative Urine Nitrate Negative Urine Bilirubin Negative Urine Urobilinogen Less than 2 Ur Leukocyte Esterase Negative Urine RBC 1 Urine WBC 1 Micro UA Comment Culture not ind Urine Culture Comments Culture not ind 05/31/18 05/31/18 06:30 06:30 WBC RBC Hgb Hct MCV MCH MCHC RDW Plt Count MPV Neut % (Auto) Lymph % (Auto) [place] % (Auto) Eos % (Auto) Baso % (Auto) Neut # (Auto) Lymph # (Auto) [place] # (Auto) Eos # (Auto) Baso # (Auto) WBC Differential Differential Comment Sodium 140 Potassium 3.2 L D Chloride 99 Carbon Dioxide 29.2 Anion Gap 12 BUN 13 Creatinine 0.83 Estimated GFR 68 L Random Glucose 104 Calcium 9.2 Magnesium 1.9 Total Bilirubin 1.1 H AST 21 ALT 29 Alkaline Phosphatase 86 Troponin I Total Protein 6.9 Albumin 4.0 Lipase Urine Color Urine Clarity Urine pH Ur Specific [place] Urine Protein Urine Glucose (UA) Urine Ketones Urine Occult Blood Urine Nitrate Urine Bilirubin Urine Urobilinogen Ur Leukocyte Esterase Urine RBC Urine WBC Micro UA Comment Urine Culture Comments - Imaging Impressions Abdomen/Pelvis CT 05/30/18 13:46 CONCLUSION: 1. Status post cholecystectomy. There is a small amount air in the central biliary system which can be a normal postsurgical change. 2. Unremarkable bowel gas pattern with no obstruction or inflammatory change. Assessment and Plan - Plan Impression Leukocytosis, improving likely reactive due to her GI problems - V/V, and component of dehydration Ongoing N/V, ?gastroparesis Abdominal pain, due to GI process CM, CHF Recommendation Rx N/V Hydrate as needed No need for any systemic Abx at this time Thank you for this consultation Explained my recommendation to patient and daughter
[2018-05-31] MEDS ORDERED: Acetaminophen 325 MG Tablet PO PRN (14:03)
--- NOTE | 2018-05-31 14:14 | P.PN ---
Subjective Interval history: Follow-up visit intractable nausea, vomiting, recent admission to another hospital for ?bacteremia/sepsis. Patient seen and examined today. Daughter at the bedside. Reports patient has not been eating well for about 15 days now. Recently admitted to [facility] and was diagnosed with sepsis, daughter states unknown etiology that patient's WBC trended downwards and she was sent home with antibiotic doxycycline she was taking. Denies any diarrhea. Continues to have some nausea. Daughter states patient was given multiple different IV antibiotics during hospitalization. When she came home, she continues to be weak and unable to maintain fluid and nutrition. Patient states she continues to feel sick. Denies pain and discomfort. Denies SOB/ dyspnea. Denies chest pain, palpitations, dizziness. Denies fevers, chills, vomiting, diarrhea. Denies dysuria. Physical Exam Vital signs: Vital Signs 05/30/18 15:46 05/30/18 17:10 05/30/18 18:04 Temperature 98.3 F Pulse Rate 78 76 85 Respiratory Rate 19 19 19 Blood Pressure 184/83 H 207/88 H 141/69 H Pulse Oximetry 99 97 95 05/30/18 18:09 05/30/18 20:00 05/31/18 00:00 Temperature 99.0 F 98.9 F Pulse Rate 87 83 Respiratory Rate 16 14 16 Blood Pressure 97/59 L 118/60 Pulse Oximetry 94 L 94 L 05/31/18 03:40 05/31/18 08:00 05/31/18 12:00 Temperature 99.8 F H 98.8 F 99.4 F Pulse Rate 86 90 92 H Respiratory Rate 16 18 16 Blood Pressure 140/72 178/82 H 90/54 L Pulse Oximetry 94 L 94 L 96 Intake & Output 05/30/18 05/31/18 05/31/18 18:59 06:59 18:59 Weight 78.018 kg Narrative: GENERAL: This is a well-nourished, well-developed patient, in no apparent distress. SKIN: Warm and dry. HEENT: Normocephalic. Pupils equal round and reactive. Nose without bleeding. Airway patent. NECK: Trachea midline. Supple. CARDIOVASCULAR: Regular rate and rhythm without murmurs, gallops, or rubs. RESPIRATORY: Clear to auscultation. Breath sounds equal bilaterally. No wheezes , rales, or rhonchi. GASTROINTESTINAL: Abdomen soft, non-tender, nondistended. Bowel Sounds normoactive x4. MUSCULOSKELETAL: Extremities without clubbing, cyanosis, or edema. NEUROLOGICAL: Awake and alert. Oriented to place, person. No focal neuro deficit. Moves all extremities. Normal speech. Results - Labs CBC & Chem 7: 05/31/18 06:30 05/31/18 06:30 Laboratory Results - last 24 hr 05/30/18 05/30/18 05/31/18 12:35 Unknown 06:30 WBC 13.7 H RBC 5.01 Hgb 15.1 Hct 44.4 MCV 88.7 MCH 30.1 MCHC 33.9 RDW 15.4 Plt Count 350 MPV 8.8 Neut % (Auto) 79.0 H Lymph % (Auto) 12.8 [place] % (Auto) 7.3 Eos % (Auto) 0.4 Baso % (Auto) 0.5 Neut # (Auto) 10.8 H Lymph # (Auto) 1.8 [place] # (Auto) 1.0 H Eos # (Auto) 0.1 Baso # (Auto) 0.1 WBC Differential . Differential Comment Auto diff final Sodium Potassium Chloride Carbon Dioxide Anion Gap BUN Creatinine Estimated GFR Random Glucose Calcium Magnesium Total Bilirubin AST ALT Alkaline Phosphatase Troponin I 0.04 Total Protein Albumin Lipase 244 Urine Color Yellow Urine Clarity Clear Urine pH 6.0 Ur Specific [place] 1.043 H Urine Protein Negative Urine Glucose (UA) Negative Urine Ketones Negative Urine Occult Blood Negative Urine Nitrate Negative Urine Bilirubin Negative Urine Urobilinogen Less than 2 Ur Leukocyte Esterase Negative Urine RBC 1 Urine WBC 1 Micro UA Comment Culture not ind Urine Culture Comments Culture not ind 05/31/18 05/31/18 06:30 06:30 WBC RBC Hgb Hct MCV MCH MCHC RDW Plt Count MPV Neut % (Auto) Lymph % (Auto) [place] % (Auto) Eos % (Auto) Baso % (Auto) Neut # (Auto) Lymph # (Auto) [place] # (Auto) Eos # (Auto) Baso # (Auto) WBC Differential Differential Comment Sodium 140 Potassium 3.2 L D Chloride 99 Carbon Dioxide 29.2 Anion Gap 12 BUN 13 Creatinine 0.83 Estimated GFR 68 L Random Glucose 104 Calcium 9.2 Magnesium 1.9 Total Bilirubin 1.1 H AST 21 ALT 29 Alkaline Phosphatase 86 Troponin I Total Protein 6.9 Albumin 4.0 Lipase Urine Color Urine Clarity Urine pH Ur Specific [place] Urine Protein Urine Glucose (UA) Urine Ketones Urine Occult Blood Urine Nitrate Urine Bilirubin Urine Urobilinogen Ur Leukocyte Esterase Urine RBC Urine WBC Micro UA Comment Urine Culture Comments - Imaging Impressions Abdomen/Pelvis CT 05/30/18 13:46 CONCLUSION: 1. Status post cholecystectomy. There is a small amount air in the central biliary system which can be a normal postsurgical change. 2. Unremarkable bowel gas pattern with no obstruction or inflammatory change. Assessment and Plan - Plan 72-year-old female with a history hyperlipidemia, hypertension, and possibly congestive heart failure who was admitted on 05/30/2018 for poorly controlled hypertension and abdominal pain with intractable nausea, and vomiting. Abdominal pain with intractable nausea and vomiting Possible gastroparesis, history of pain pump left lower quadrant, turned off recently 05/21/18 -IV Dilaudid -Leukocytosis with a WBC of 17.7, afebrile, and not tachycardic -does not meet sepsis criteria at this time, possibly reactive -Check for C. 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 Compazine for nausea and vomiting -CT abdomen pelvis small amount of air at the biliary area but otherwise negative for obstruction and any acute process. -Restart Reglan 3 times daily with meals, start liquid diet, advance as tolerated -Consult GI, appreciate recommendations. Follows with Dr. Romero and NSB before. Last EGD/colonoscopy done in 2017. -As per GI, plan for EGD Saturday but if patient has improved status EGD can be done outpatient and should not hinder patient discharge. Leukocytosis -History of recurrent UTI, with mesh -History of hospitalization, sepsis, treated with IV antibiotics for unknown etiology. -WBC 17.7 -->13.3, possibly reactive versus infectious -UA negative. CXR negative -Check pro calcitonin. Check blood cultures. -Consult infectious disease for evaluation, appreciate recommendations. -Patient has a foreign body, pain pump left lower quadrant -Appears to have oral thrush, start clotrimazole troches Hypertension, uncontrolled CHF -Initially 203/91 but dropped to 97/59 after treatment of nausea and vomiting symptoms as well as anxiety along with clonidine for blood pressure -Restart home medication aspirin, Lipitor, lisinopril twice daily, Lasix, metoprolol -Monitor BP trend -Check documentation for ECHO in [facility] NSB DVT prop SCDs Code Status: Full code Discussed Condition With: Patient, daughter, nursing, Dr. Benoit Discharge Planning: DC home when clinically improved.
[2018-05-31] MEDS: Clotrimazole 10 MG Troche BUCCAL SCH ×3 (14:45→21:18)
[2018-05-31] MEDS: Sod Chloride 0.9% Inj 1,000 ML IV.CONT SCH (18:12)
[2018-06-01] MEDS: Clotrimazole 10 MG Troche BUCCAL SCH ×2 (05:03→09:41)
[2018-06-01] MEDS ORDERED: Nitroglycerin SL (Override) 0.4 MG Tab SL PRN (08:47)
[2018-06-01] MEDS ORDERED: Levothyroxine 88 MCG Tablet PO ONE (08:49)
[2018-06-01] MEDS ORDERED: Lisinopril 20 MG Tablet PO SCH (09:00)
[2018-06-01] MEDS: Sertraline 50 MG Tablet PO SCH (09:40)
[2018-06-01] MEDS: Furosemide 20 MG Tablet PO SCH (09:41)
[2018-06-01] MEDS: Docusate Sodium 100 MG Capsule PO SCH (09:41)
[2018-06-01 10:12] LABS: Baso # (Auto) 0.1 th/mm3 (0.0-0.2); Eos # (Auto) 0.1 th/mm3 (0.0-0.4); Eos % (Auto) 1.1 % (0.0-4.0); Hemoglobin 14.1 gm/dL (11.6-15.3); Mean Corpuscular HGB Conc 32.7 % (32.0-36.0); Mean Corpuscular Hemoglobin 29.2 pg (27.0-34.0); Mean Corpuscular Volume 89.3 fL (80.0-100.0); Mean Platelet Volume 8.3 fL (7.0-11.0); Mono # (Auto) 0.9 th/mm3 (0.0-0.9); Neut # (Auto) 8.1 th/mm3 (1.8-7.7); Neut % (Auto) 71.9 % (16.0-70.0); Platelet Count 356 th/mm3 (150-450); Red Blood Count 4.81 mil/mm3 (4.00-5.30); Red Cell Distribution Width 15.2 % (11.6-17.2); White Blood Count 11.2 th/mm3 (4.0-11.0)
[2018-06-01 10:26] LABS: Potassium 3.5 meq/L (3.5-5.1)
--- NOTE | 2018-06-01 10:52 | P.DS ---
Date of admission: 05/30/18 18:10 Primary care physician: Geovani Cazares Attending physician on discharge: Naren Benoit Anticipated date of discharge: 06/01/18 Brief History from admission: Ms. Valdivia is a 72-year-old female with a history hyperlipidemia, hypertension, and possibly congestive heart failure who was admitted on 05/30/2018 for poorly controlled hypertension and abdominal pain with intractable nausea, and vomiting. The patient is seen in the CDU. She states that she was treated at [facility] in [place] about a week ago for a "blood infection". At the time of my visit, she reports feeling much better and denies any abdominal pain , nausea, vomiting, or diarrhea. DS: Diagnosis - Discharge Diagnosis (1) Gastroparesis Status: Acute (2) Vomiting and diarrhea Status: Acute (3) Leukocytosis Status: Acute DS: Medications - Discharge Medications Prescriptions: clotrimazole 10 mg BUCCAL 5 TIMES A DAY 7 Days #35 tab furosemide 20 mg PO DAILY #30 tab lisinopril 20 mg PO DAILY #30 tab metoclopramide HCl 10 mg PO ACHS #90 tab metoprolol succinate 25 mg PO DAILY #30 tab potassium chloride 10 meq PO DAILY #30 cap DS: Summary Hospital Course: 72-year-old female with a history hyperlipidemia, hypertension, and possibly congestive heart failure who was admitted on 05/30/2018 for poorly controlled hypertension and abdominal pain with intractable nausea, and vomiting. Possible gastroparesis, history of pain pump left lower quadrant, turned off recently 05/21/18 -IV Dilaudid. Leukocytosis with a WBC of 17.7, afebrile, and not tachycardic -does not meet sepsis criteria at this time, possibly reactive. C. difficile negative. Patient was on doxycycline prior hospital admission secondary to sepsis pneumonia. She is also been seen by head teacher Dr. Linares evaluated her for acute PR, per review of medical records from [facility], patient's ejection fraction initially was 10% however he did a left heart cath which showed 35-40% EF, positive PFO. Started on aspirin. She was given Zofran, Compazine started on Reglan 3 times daily during her hospitalization here. CT of the abdomen and pelvis small amount of air at the biliary area but otherwise negative for obstruction and any acute process. Gastroenterology was consulted. Plan for EGD however states that she needs cardiac clearance prior to EGD secondary to recent PR. 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 Last EGD colonoscopy done in 2017. Discussed extensively with patient and daughter gastroparesis and to avoid any narcotics at home. Continue with the Reglan 3 times a day. Her leukocytosis have improved. Her UA with was negative, chest x-ray was negative. Infectious disease was consulted and evaluated patient. Recommends no IV antibiotic for now. She may continue her doxycycline when she goes home but if it gives her GI upset she can stop the antibiotic. She needs to follow-up with Dr. Newman in [place] infectious disease. Appears to have oral thrush and started on clotrimazole troches. She can continue to use it 7 days when she is at home. Hypertension with CHF, medication adjustment has been done since patient blood pressure usually runs low. Discussed medication adjustment with patient and daughter. She will continue with her aspirin, Lipitor, lower dose of lisinopril, lower dose of Lasix, lower dose of metoprolol which they verbalized understanding and were appreciative of the adjustment. Reports improved symptomatology. Patient has met maximal benefits of hospitalization. Clinically stable for discharge. - Time Spent with Patient Total time spent providing and/or coordinating discharge services: Less than 30 minutes Exam Vital signs: Vital Signs 05/31/18 12:00 05/31/18 15:39 05/31/18 19:35 Temperature 99.4 F 98.6 F 98.1 F Pulse Rate 92 H 103 H 96 H Respiratory Rate 16 18 18 Blood Pressure 90/54 L 88/55 L 89/50 L Pulse Oximetry 96 96 95 05/31/18 20:00 05/31/18 23:06 06/01/18 04:00 Temperature 98.1 F 98.6 F Pulse Rate 87 78 Respiratory Rate 16 18 18 Blood Pressure 82/53 L 159/73 H Pulse Oximetry 95 96 06/01/18 07:42 Temperature 98.9 F Pulse Rate 89 Respiratory Rate 18 Blood Pressure 108/58 L Pulse Oximetry 94 L Intake & Output 05/31/18 06/01/18 06/01/18 18:59 06:59 18:59 Other: # Voids 2 Narrative: ENERAL: This is a well-nourished, well-developed patient, in no apparent distress. SKIN: Warm and dry. HEENT: Normocephalic. Pupils equal round and reactive. Nose without bleeding. Airway patent. NECK: Trachea midline. Supple. CARDIOVASCULAR: Regular rate and rhythm without murmurs, gallops, or rubs. RESPIRATORY: Clear to auscultation. Breath sounds equal bilaterally. No wheezes , rales, or rhonchi. GASTROINTESTINAL: Abdomen soft, non-tender, nondistended. Bowel Sounds normoactive x4. MUSCULOSKELETAL: Extremities without clubbing, cyanosis, or edema. NEUROLOGICAL: Awake and alert. Oriented to place, person. No focal neuro deficit. Moves all extremities. Normal speech. Results Procedures completed during hospitalization: None Labs on day of discharge: Labs from last 24 hours 06/01/18 06/01/18 05/31/18 09:54 09:54 15:25 WBC 11.2 H RBC 4.81 Hgb 14.1 Hct 43.0 MCV 89.3 MCH 29.2 MCHC 32.7 RDW 15.2 Plt Count 356 MPV 8.3 Neut % (Auto) 71.9 H Lymph % (Auto) 18.0 [place] % (Auto) 8.0 Eos % (Auto) 1.1 Baso % (Auto) 1.0 Neut # (Auto) 8.1 H Lymph # (Auto) 2.0 [place] # (Auto) 0.9 Eos # (Auto) 0.1 Baso # (Auto) 0.1 WBC Differential . Differential Comment Auto diff final Sodium 138 Potassium 3.5 Chloride 100 Carbon Dioxide 31.0 Anion Gap 7 BUN 16 Creatinine 0.97 Estimated GFR 57 L Random Glucose 122 H Calcium 9.0 Stl C.difficile Tox PCR Negative St C. diff Tox Epid 027 Negative - Impressions ITS Impressions Chest X-Ray 05/30/18 12:37 CONCLUSION: No acute cardiopulmonary disease. Abdomen/Pelvis CT 05/30/18 13:46 CONCLUSION: 1. Status post cholecystectomy. There is a small amount air in the central biliary system which can be a normal postsurgical change. 2. Unremarkable bowel gas pattern with no obstruction or inflammatory change. Discharge Plan - Discharge Disposition Patient Disposition: 01 Discharge Home - Discharge Condition Condition: Stable - Discharge Order Discharge Orders: Discharge Order (Routine); Ordered 06/01/18 Ordered By: Aryan Duarte - Discharge Details Anticipated Discharge Date: 05/30/18 Discharge Comment: DC when tolerating diet - Physicians Team Primary Care Provider: Geovani Cazares Attending Provider: Naren Benoit Other Providers: Turner Adame MD ; Mary Walls MD ; John Lopez
[2018-06-01] MEDS ORDERED: Metoclopramide 10 MG Tablet PO SCH (12:00)
[2018-06-01] MEDS: Sod Chloride 0.9% Inj 1,000 ML IV.CONT SCH (12:41)
--- NOTE | 2018-06-01 13:24 | P.PNGI ---
Subjective Interval history: Patient is resting in the bed feeling somewhat better today Hemoglobin 15.1 due to increased white count to 13.7 No acute nausea and vomiting this morning, patient does have significant history of gastroparesis Patient knows last GI procedures October 2017. No abdominal pain, afebrile Physical Exam Vital signs: Vital Signs 05/31/18 15:39 05/31/18 19:35 05/31/18 20:00 Temperature 98.6 F 98.1 F Pulse Rate 103 H 96 H Respiratory Rate 18 18 16 Blood Pressure 88/55 L 89/50 L Pulse Oximetry 96 95 05/31/18 23:06 06/01/18 04:00 06/01/18 07:42 Temperature 98.1 F 98.6 F 98.9 F Pulse Rate 87 78 89 Respiratory Rate 18 18 18 Blood Pressure 82/53 L 159/73 H 108/58 L Pulse Oximetry 95 96 94 L 06/01/18 12:00 Temperature 97.7 F Pulse Rate 87 Respiratory Rate 16 Blood Pressure 84/50 L Pulse Oximetry 94 L Intake & Output 05/31/18 06/01/18 06/01/18 18:59 06:59 18:59 Intake Total 1000 / 1000 Balance 1000 / 1000 Intake: IV 1000 / 1000 NS Inj 1,000 ML @ 75 mls/hr IV. 1000 / 1000 CONT .[id number] Rx#:[id number] Other: # Voids 2 - Constitutional no acute distress (Mild weakness fatigue but resolving ) - Routine HEENT Exam Head: Present: normocephalic, atraumatic ENT: Present: mucous membranes dry - Routine Neck Exam Present: supple - Routine Respiratory Exam Present: decreased breath sounds - Routine Cardiovascular Exam Present: S1 (Mild decreased breath sounds in her bases), S2 - Routine Abdominal Exam Present: soft (Round, bowel sounds soft) - Routine Neurological Exam Present: alert (Answer simple questions) Results - Labs CBC & Chem 7: 06/01/18 09:54 06/01/18 09:54 Laboratory Results - last 24 hr 05/31/18 06/01/18 06/01/18 15:25 09:54 09:54 WBC 11.2 H RBC 4.81 Hgb 14.1 Hct 43.0 MCV 89.3 MCH 29.2 MCHC 32.7 RDW 15.2 Plt Count 356 MPV 8.3 Neut % (Auto) 71.9 H Lymph % (Auto) 18.0 [place] % (Auto) 8.0 Eos % (Auto) 1.1 Baso % (Auto) 1.0 Neut # (Auto) 8.1 H Lymph # (Auto) 2.0 [place] # (Auto) 0.9 Eos # (Auto) 0.1 Baso # (Auto) 0.1 WBC Differential . Differential Comment Auto diff final Sodium 138 Potassium 3.5 Chloride 100 Carbon Dioxide 31.0 Anion Gap 7 BUN 16 Creatinine 0.97 Estimated GFR 57 L Random Glucose 122 H Calcium 9.0 Stl C.difficile Tox PCR Negative St C. diff Tox Epid 027 Negative Microbiology 05/31/18 12:10 Blood - Peripheral Aerobic Blood Culture - Preliminary No growth in 1 day 05/31/18 12:10 Blood - Peripheral Anaerobic Blood Culture - Preliminary No growth in 1 day 05/31/18 12:04 Blood - Peripheral Aerobic Blood Culture - Preliminary No growth in 1 day 05/31/18 12:04 Blood - Peripheral Anaerobic Blood Culture - Preliminary No growth in 1 day Assessment and Plan - Plan - Intractable nausea, and vomiting for the past 2 days- She states that she was treated at [facility] in [place] about a week ago for a "blood infection". Medical records have been requested. Pt seems to be doing better today, still nauseous but no vomiting, no abd pain, no diarrhea, no melena or hematochezia. She is s/p cholecystectomy 2 yrs ago. States she had EGD/ colonoscopy about a yr ago in [facility]. Abdomen/Pelvis CT 05/30/18 13:46 1. Status post cholecystectomy. There is a small amount air in the central biliary system which can be a normal postsurgical change. 2. Unremarkable bowel gas pattern with no obstruction or inflammatory change. Labs showed leucocytosis, LFTs, and lipase wn - Leucocytosis Recent infection, blood cx pending - hypokalemia Per attending - History hyperlipidemia, hypertension per attending 06/01/2018 patient has resolving symptoms of nausea and vomiting over the past 12 hours. Patient and daughter did note one episode of vomiting with approximately 500 cc mucus and bilious secretions, but immediately was feeling better. Discussed with patient the symptom management of her gastroparesis which could include eating small amounts of food chewing very slowly and eating 4-6 times a day rather than trying to eat 3 meals a day and larger quantities. Patient is following cardiac physician for recent MO so she is not a candidate without cardiac clearance for EGD. Since patient is feeling better today and white count is pending down, C. difficile negative, ID recommends no systemic antibiotics, patient should be able to be monitored on an outpatient basis and return to Dr. Raya who knows her well as well as Dr. Linares cardiology. Patient can remain on her baby aspirin. Plan: -Diet small amounts 4-6 times a day -Monitor labs - Supportive care, GI will sign off and recommend follow-up on an outpatient basis with her GI physician as well as cardiology - Pt seen and examined by Dr. Hinojosa and myself and this note is written on his behalf.
[2018-06-02] MEDS ORDERED: Levothyroxine 88 MCG Tablet PO SCH (06:00)
== END 2018-06-01 13:29 | disposition home or self-care (01) ==
LOC: NEPE 12:00 → NEPGCP 12:00 → NEDA 12:00 → NEPGCP 19:54
PROVIDERS: ADMIT Internal Medicine; ATTEND Internal Medicine